=== PATIENT | male | born 1960 | race Caucasian/White ===

== ENCOUNTER 2016-09-22 02:40 | Inpatient (IN) | payer OTHER ==
[~2016-09-22] VITALS: Ht 177.8 cm; Wt 86.2 kg
[~2016-09-22 02:40] MED LIST: LIPITOR10 M1 PO
--- NOTE | 2016-09-22 10:05 | Admission Core Measures ---
Admission Meds I reviewed the following Meds: Current Medications Sig/Haydee Start time Last Medication Dose Stop Time Status Admin Acetaminophen 975 MG ONCE 09/22 0000 NR (Tylenol) 09/22 2358 Atorvastatin Calcium 10 MG 1700 09/22 1699 AC (Lipitor) Cefazolin Sodium 2,000 MG ONCE 09/22 0000 NR (Kefzol-Ancef Inj) 09/22 2358 Oxycodone HCl 10 MG ONCE 09/22 0000 NR (Roxicodone) 09/22 2358 Acute Coronary Syndrome Inclusion Criteria ACS Diagnosis No Inpatient Core Measures LDL Reminder: If No, please order W/I first 24hr of stay Congestive Heart Failure Inclusion Criteria CHF Diagnosis No Cerebrovascular accident Inclusion Criteria CVA/TIA Diagnosis No Inpatient Core Measures Bedside Swallow Eval Reminder: If BSE failed, place ST order Antithrombotic Reminder: Order Antithrombotic Medication by end of day 2 Antithrombotic Reminder: Document Reason Antithrombotic Not ordered by end of day 2 AFIB/Flutter Reminder: If Present, add to problem list AFIB/Flutter Reminder: Order Anticoag Medication for pts with AFIB/Flutter Atherosclerosis Reminder: If Present, add to problem list LDL Reminder: If No, please order W/I first 24hr of stay PT Order Reminder: If No, please order Venous thromboembolism Inpatient Core Measures VTE Risk Factors: Age > 40, Surgery [facility] prophylaxis d/t No contraindications No VTE Pharm Prophylaxis d/t No contraindications Inclusion Criteria - Per Current guidelines, there needs to be overlap - treatment for the first 5 days of Warfarin therapy. - Parenteral Anticoagulation (IV or SC) needs to be - given along with Warfarin therapy. VTE Diagnosis No VTE Type NONE VTE Confirmed by (Test) NONE Problem List As ranked by this Provider includes Assessment & Plan 1. Unilateral primary osteoarthritis, right hip HOME MEDS Home Med List Atorvastatin Calcium (Lipitor) 10 MG TABLET 1 TAB PO DAILY CHOLESTEROL ( Reported)
[2016-09-22] MEDS ORDERED: ELIQUIS2.5 M1 PO (10:09)
[2016-09-22] MEDS ORDERED: COLACE100 M1 PO (10:09)
[2016-09-22] MEDS ORDERED: DILAUDID2 M1 PO (10:09)
[2016-09-22] MEDS ORDERED: MS CONTIN15 M2 PO (10:09)
[2016-09-22] MEDS ORDERED: MIRALAX17 G1 PO (10:09)
[2016-09-22] MEDS ORDERED: PRILOSEC OTC20 M1 PO (10:09)
--- NOTE | 2016-09-22 10:15 | Patient Discharge Instructions ---
Discharge Instructions General Discharge Information You were seen/treated for: RIGHT HIP PAIN You had these procedures: RIGHT TOTAL HIP REPLACEMENT Watch for these problems: INCREASING PAIN DESPITE USE OF PAIN MEDICATION, REDNESS, WARMTH, SWELLING. DRAINAGE OF ANY TYPE FROM INCISION. INABILITY TO BEAR WEIGHT ON RIGHT LEG. FEVER GREATER THAN 101.5. Do not soak the wound: Yes No bath, but you may shower: Yes Other wound care: KEEP WOUND CLEAN AND DRY Special Instructions: WOUND CARE: YOUR DRESSING WILL BE CHANGED ON THE SECOND DAY AFTER SURGERY. IF YOU ARE HOME, IT WILL BE DONE BY VISITING NURSE. AFTER THAT POINT, KEEP WOUND CLEAN AND DRY. YOU MAY SHOWER. DO NOT SCRUB THE INCISION. PAT IT DRY WITH A CLEAN TOWEL AFTER YOUR SHOWER. DO NOT PUT ANY OINTMENTS OF ANY KIND ON INCISION. BOWEL REGIMEN: IT IS IMPORTANT TO MAKE SURE YOU TAKE YOUR COLACE AND MIRALAX TO AVOID CONSTIPATION WHICH COMMONLY OCCURS WITH THE USE OF PAIN MEDICATION. BLOOD THINNER: YOU HAVE BEEN GIVEN A PRESCRIPTION FOR ELIQUIS. PLEASE TAKE THIS TWICE DAILY STARTING 09/23/2016 TO ENSURE PROTECTION FROM THE DEVELOPMENT OF A BLOOD CLOT. FOLLOW UP: DR. WEISS WILL SEE YOU IN HIS OFFICE IN 6 WEEKS FROM DATE OF SURGERY. Diet Continue normal diet: Yes Recommended Diet: Regular Additional DIET Information: ADVANCE TOLERATED Activity Full Activity/No Limits: No Activity Self Limited: Yes Pounds, do NOT lift more than: 10 Acute Coronary Syndrome Inclusion Criteria At DC or during hospital stay patient has or had the following: ACS DIAGNOSIS No Discharge Core Measures Meds if any: Prescribed or Continued at Discharge Meds if any: NOT Prescribed or Continued at Discharge Congestive Heart Failure Inclusion Criteria At DC or during hospital stay patient has or had the following: CHF DIAGNOSIS No Discharge Core Measures Meds if any: Prescribed or Continued at Discharge Meds if any: NOT Prescribed or Continued at Discharge Cerebrovascular accident Inclusion Criteria At DC or during hospital stay patient has or had the following: CVA/TIA Diagnosis No Discharge Core Measures Meds if any: Prescribed or Continued at Discharge Meds if any: NOT Prescribed or Continued at Discharge Venous thromboembolism Inclusion Criteria VTE Diagnosis No VTE Type NONE VTE Confirmed by (Test) NONE Discharge Core Measures - Per Current guidelines, there needs to be overlap - treatment for the first 5 days of Warfarin therapy. - If discharged on Warfarin prior to 5 days of - overlap therapy, the patient will need to be - assessed for post discharge needs including - *Post discharge parental anticoagulation - *Warfarin and/or parental anticoagulation education - *Follow up date to check INR post discharge At least 5 days overlap therapy as Inpatient No Meds if any: Prescribed or Continued at Discharge Note: Overlap Therapy is Warfarin and Anticoagulant Meds if any: NOT Prescribed or Continued at Discharge
--- NOTE | 2016-09-22 10:18 | Surgical Discharge Summary ---
Visit Information Visit Dates Admission Date: 09/22/16 Discharge Date: 09/22/16 History of Present Illness Chief Complaint: RIGHT HIP PAIN SECONDARY TO PRIMARY UNILATERAL OSTEOARTHRITIS Surgical History Pertinent Surgical History: non-contributory Review of Systems: SEE H&P Hospital Course Course Attending Physician: JESSICA WEISS MD Primary Care Physician: COLE HAINES MD Hospital Course: REGAN WAS ADMITTED TO THE HOSPITAL ON 09/22/2016 FOR AN ELECTIVE RIGHT TOTAL HIP REPLACEMENT. HE TOLERATED THE PROCEDURE WELL. HE WAS TRANSFERRED TO A GENERAL SURGICAL FLOOR. HIS DIET WAS ADVANCED AND TOLERATED. HIS VITAL SIGNS WERE STABLE AND WITHIN NORMAL LIMITS. HE VOIDED SPONTANEOUSLY. HIS PAIN WAS WELL CONTROLLED WITH PO PAIN MEDICATIONS. HE WAS EVALUATED AND TREATED BY PHYSICAL THERAPY. HE WAS DEEMED APPROPRIATE FOR DISCHARGE. Allergies: Coded Allergies: No Known Allergies (09/17/16) Disposition Summary Disposition Principal Diagnosis: RIGHT HIP UNILATERAL PRIMARY OSTEOARTHRITIS Additional Diagnosis: NONE Discharge Disposition: home health services Discharge Instructions General Discharge Information Code Status: Full Code Patient's Diet: REGULAR, ADVANCE TOLERATED Patient's Activity: WBAT ON RIGHT LEG Follow-Up Instructions/Appts: WOUND CARE: YOUR DRESSING WILL BE CHANGED ON THE SECOND DAY AFTER SURGERY. IF YOU ARE HOME, IT WILL BE DONE BY VISITING NURSE. AFTER THAT POINT, KEEP WOUND CLEAN AND DRY. YOU MAY SHOWER. DO NOT SCRUB THE INCISION. PAT IT DRY WITH A CLEAN TOWEL AFTER YOUR SHOWER. DO NOT PUT ANY OINTMENTS OF ANY KIND ON INCISION. BOWEL REGIMEN: IT IS IMPORTANT TO MAKE SURE YOU TAKE YOUR COLACE AND MIRALAX TO AVOID CONSTIPATION WHICH COMMONLY OCCURS WITH THE USE OF PAIN MEDICATION. BLOOD THINNER: YOU HAVE BEEN GIVEN A PRESCRIPTION FOR ELIQUIS. PLEASE TAKE THIS TWICE DAILY STARTING 09/23/2016 TO ENSURE PROTECTION FROM THE DEVELOPMENT OF A BLOOD CLOT. FOLLOW UP: DR. WEISS WILL SEE YOU IN HIS OFFICE IN 6 WEEKS FROM DATE OF SURGERY. Medications at Discharge Discharge Medications: Continue taking these medications: Atorvastatin Calcium (Lipitor) 10 MG TABLET 1 Tablet ORAL DAILY Comments: NOT GIVEN WHILE IN HOSPITAL Start taking the following new medications: Apixaban (Eliquis) 2.5 MG TABLET 1 Tablet ORAL TWICE DAILY Qty = 60 No Refills Instructions: BEGIN MORNING OF SEPTEMBER 23, 2016 Docusate Sodium (Colace) 100 MG CAPSULE 1 Capsule ORAL TWICE DAILY Qty = 14 No Refills Instructions: DISCONTINUE USE IF YOU DEVELOP LOOSE STOOL OR DIARRHEA Comments: NOT GIVEN WHILE IN HOSPITAL Hydromorphone HCl (Dilaudid) 2 MG TABLET 1-2 Tablet ORAL EVERY 4-6 HOURS as needed for PAIN Qty = 36 No Refills Comments: NOT GIVEN WHILE IN HOSPITAL Polyethylene Glycol 3350 (Miralax) 17 GRAM POWD.PACK 1 Packet ORAL DAILY Qty = 7 No Refills Instructions: dissolve in water, DISCONTINUE USE IF YOU DEVELOP LOOSE STOOL OR DIARRHEA Comments: NOT GIVEN WHILE IN HOSPITAL Morphine Sulfate (Ms Contin) 15 MG TABLET.ER 1 Tablet ORAL TWICE DAILY Qty = 6 No Refills Comments: NOT GIVEN WHILE IN HOSPITAL Omeprazole Magnesium (Prilosec Otc) 20 MG TABLET.DR 1 Tablet ORAL DAILY Qty = 30 No Refills Comments: NOT GIVEN WHILE IN HOSPITAL
--- NOTE | 2016-09-22 10:42 | RADIOLOGY REPORT ---
EXAMINATION: XR HIP, RIGHT CLINICAL INFORMATION: Patient reports status post right total hip replacement. COMPARISON: None TECHNIQUE: AP and crosstable lateral of the right hip. FINDINGS: The right total hip arthroplasty appears well seated in near-anatomic alignment. There is some lucency in the superolateral acetabulum which may represent preexistent subchondral degenerative cystic change. There is air in the soft tissues. IMPRESSION: Intact right total hip arthroplasty. Expected postoperative changes. Lucency in the superolateral acetabulum which may represent preexistent subchondral degenerative cystic change. Correlate with prior plain films.
--- NOTE | 2016-09-22 11:30 | NUR ---
ARRIVED TO FLOOR. AMBULATED FROM STRETCHER TO CHAIR WITH PHYSICAL THERAPY. C/O PINS AND NEEDLES FEELING TO BLE. +CMS. DSG TO RIGHT HIP C/D/I WITH NO SWELLING NOTED. PT DENIES PAIN AT THIS TIME. IVF INFUSING. ORIENTED TO CALL SYSTEM. WILL MONITOR.
[2016-09-22 11:45] VITALS: BP 102/70
--- NOTE | 2016-09-22 13:30 | PN- Orthopedic ---
Subjective Subjective: Post op check OOB in chair without complaints Ambulated with PT - cleared for dc home, no instability or pain with ambulation Tolerating diet Pain well controlled at this time Objective Vital Signs and I&Os Vital Signs Date Time Temp Pulse Resp B/P Pulse O2 O2 Flow FiO2 Ox Delivery Rate 09/22 1145 93.3 53 16 102/70 96 Room Air Intake & Output 09/22 1600 09/22 0800 09/22 0000 09/21 1600 09/21 0800 09/21 0000 Intake Total Output Total Balance Patient 190 lb Weight Physical Exam: afebrile VSS Has not voided yet General: alert and oriented times three Ext: warm, no edema, positive sensate, no calf tenderness Wound: dressed, dry Assessment/Plan Assessment/Plan 56 yo male s/p R THR anterior approach plan to dc home with services/home PT fu void all instructions given eliquis for dvt ppx per Dr Hodge GI ppx with protonix Core Measures/Miscellaneous Venous Thromboembolism VTE Risk Factors: Age > 40, Surgery VTE Contraindications: No Contraindications VTE Diagnosis: No VTE Type: NONE VTE Confirmed by (Test): NONE Beta Juan Carlos Is Beta Juan Carlos a Home Med? No Antibiotics Is Patient on Antibiotics? Yes If Yes: prophylaxis (post op for two doses)
--- NOTE | 2016-09-22 13:43 | Operative Report ---
Operative/Inv Procedure Report Surgery Date: 09/22/16 Name of Procedure: Right total hip replacement Pre-Operative Diagnosis: Primary right hip DJD Post-Operative Diagnosis: Same Estimated Blood Loss: 400 Surgeon/Sales And Events Coordinator: ISELA PALMA,JESSICA Kerns Anesthesia: block Operative/Procedure Note Note: Description of Procedure: The patient was taken to the operating room and positively identified. After induction of spinal anesthesia and administration of appropriate pre-operative antibiotics, the patient was positioned supine on the operating room table and all bony prominences were well padded. After performing a surgical timeout, the right lower extremity was prepped and draped in the usual sterile fashion. A direct anterior approach was made to the right hip. The incision was carried sharply through superficial soft tissues to the level of the fascia. Meticulous hemostasis was maintained with Bovie electocautery. The fascia over the tensor fascia dov muscle was opened sharply and the interval between the TFL and the sartorius was entered bluntly taking care to stay lateral to the lateral femoral cutaneous nerve. Retractors were placed around the femoral neck and the pericapsular fat was identified. The ascending branches of the lateral femoral circumflex vessels were identified and carefully coagulated. The pericapsular fat and anterior capsule were then resected. A napkin ring osteotomy was performed and the femoral head was removed without difficulty. Attention was then turned to the acetabulum. After appropriate placement of retractors, the acetabulum was exposed. Soft tissue was cleaned from the acetabular margin and notch. Overhanging osteophytes were removed and the teardrop was exposed. The acetabulum was then sequentially reamed to accept a 60 mm Nicholas Tritanium hemispherical solid back shell. This was impacted into place in the appropriate position and fitted with a 36 mm Trident X3 zero degree polyethylene insert. Attention was then turned to the femur. After performing the appropriate ligament releases, the proximal femur was exposed. It was then sequentially broached to accept a size 5 Cucumber accolade 2 stem. This was trialed for leg length and stability. The trial component was removed and the final component was impacted into place. The trunnion was carefully cleaned and fit with a 36 mm, +2.5 Biolox delta ceramic femoral head. The hip was reduced and put through a full range of motion and found to be stable. The articular space was then irrigated with sterile saline. The periarticular soft tissues were infilitrated with Marcaine. The fascial layer was closed with interrupted #1 vicryl suture and the skin was re-approximated with interrupted 2 -0 vicryl. The skin was closed with a running 3-0 V-Lock suture. Steri-strips and a sterile dressing were applied. The patient was awakened and taken to the recovery room in satisfactory condition.
== END 2016-09-22 14:20 | disposition home health service (06) | DRG 470 ==
LOC: ENRESERVDT → ENRESERVTM → ENPENDDIS 02:40 → SDA 02:40 → 2NA 11:22
PROVIDERS: ADMIT Orthopaedic Surgery
PROC: 0SR904A Replacement of Right Hip Joint with Ceramic on Polyethylene Synthetic Substitute, Uncemented, Open Approach (ICD-10-PCS; principal; 2016-09-22)
DX: M16.11 Unilateral primary osteoarthritis, right hip (principal); F32.9 Major depressive disorder, single episode, unspecified; E78.5 Hyperlipidemia, unspecified
CPT/HCPCS: 2NASP; 73502-RT; 88304; 97110-GO; 97116-GO; 97161-GP; 97530-GO; J0690; J0735; J2405; J2550; J7042